=== PATIENT | female | born 1975 | race Caucasian/White ===

== ENCOUNTER 2016-12-28 21:58 | Observation (INO) | payer MEDICAID ==
[~2016-12-28] VITALS: Ht 144.8 cm; Wt 68.0 kg
[2016-12-28 21:59] VITALS: BP 141/80; PULSE 80; RESP 16; TEMP 98; O2SAT 98
[2016-12-28] MEDS ORDERED: SODIUM CHLOR 0.9% 1000 ML INJ 1,000 ML IV SCH (23:00)
[2016-12-28] MEDS ORDERED: HYDROmorphone HCL PF 1 MG/ML VIAL IV PUSH ONE (23:00)
[2016-12-28] MEDS ORDERED: SODIUM CHLORIDE 0.9% FLUSH 5 ML FLUSH IVF PRN (23:00)
[2016-12-28] MEDS ORDERED: ONDANSETRON HCL 4 MG/2 ML VIAL IV PUSH ONE (23:00)
[2016-12-28 23:26] LABS: BLOOD, URINE TRACE (NEG); GLUCOSE,URINE NEG (NEG); KETONE, URINE TRACE mg/dL (NEG); NITRITE,URINE NEG (NEG); PH, URINE 5.5 (5.0-8.5); SQUAMOUS EPITHELIAL CELL URINE <1 /hpf (0-5); URINE COLOR LIGHT-YELLOW (YELLW/STRAW)
[2016-12-28 23:26] LABS: AUTOMATED NEUTROPHIL # 7.1 TH/MM3 (1.8-7.7); BASOPHIL % 0.3 % (0.0-2.0); EOSINOPHIL # 0.1 TH/MM3 (0-0.4); EOSINOPHIL % 1.3 % (0.0-4.0); HEMATOCRIT 34.4 % (35.0-46.0); HEMO FLAGS DIFF FINAL; LYMPHOCYTE # 2.7 TH/MM3 (1.0-4.8); MEAN CORPUSCULAR HEMOGLOBIN 27.2 PG (27.0-34.0); MEAN CORPUSCULAR HGB CONC 34.5 % (32.0-36.0); MONO % 6.4 % (0.0-8.0); PLATELET COUNT 290 TH/MM3 (150-450); RED BLOOD COUNT 4.35 MIL/MM3 (4.00-5.30); RED CELL DISTRIBUTION WIDTH 13.4 % (11.6-17.2); WHITE BLOOD COUNT 10.6 TH/MM3 (4.0-11.0)
[2016-12-28 23:29] LABS: COMMENT (UR) CULT NOT INDICATED; CULTURE IF INDICATED CULT NOT INDICATED
[2016-12-28 23:40] VITALS: BP 111/55; PULSE 82; RESP 18; O2SAT 98
[2016-12-28 23:51] LABS: ALT (GPT) 40 U/L (10-53); ANION GAP 7 MEQ/L (5-15); AST (GOT) 31 U/L (15-37); BICARBONATE 24.3 MEQ/L (21.0-32.0); BLOOD UREA NITROGEN 15 MG/DL (7-18); CHLORIDE 108 MEQ/L (98-107); GLOMERULAR FILTRATION RATE 113 ML/MIN (>89); POTASSIUM 3.6 MEQ/L (3.5-5.1); SODIUM (NA) 139 MEQ/L (136-145)
[2016-12-28 23:53] LABS: ALKALINE PHOSPHATASE 98 U/L (45-117); TOTAL BILIRUBIN ADULT 0.6 MG/DL (0.2-1.0)
--- NOTE | 2016-12-29 00:20 | RADRPT ---
EXAM DATE/TIME: 12/28/2016 23:40 [place] COMPARISON: No previous studies available for comparison. INDICATIONS : Right upper quadrant pain. MEDICAL HISTORY : Renal calculi. SURGICAL HISTORY : Appendectomy. ENCOUNTER: Initial ACUITY: 1 day PAIN SCORE: 7/10 LOCATION: Right upper quadrant MEASUREMENTS: LIVER: 15.2 cm length COMMON DUCT: 7 mm RIGHT KIDNEY: 10.7 x 3.9 x 5.1 cm FINDINGS: LIVER: Normal echotexture without focal lesion or ductal dilatation. COMMON DUCT: No intraluminal mass or stone visualized. Mildly prominent in caliber up to 7 mm. GALLBLADDER: Cholelithiasis, mild wall thickening up to 5.2 mm. No pericholecystic fluid. Positive sonographic Mur phy's sign. PANCREAS: The visualized portions are within normal limits. RIGHT KIDNEY: No evidence of hydronephrosis, stone, or mass. CONCLUSION: 1. Abnormal gallbladder with gallstones, wall thickening and positive sonographic Dexter sign charact eristic of acute cholecystitis. Yannick Franco MD on December 29, 2016 at 0:17 Board Certified Radiologist. This report was verified electronically.
[2016-12-29 01:00] VITALS: BP 101/58; PULSE 68; RESP 18; O2SAT 99
--- NOTE | 2016-12-29 01:17 | PD ---
HPI Chief Complaint: Abdominal Pain Time Seen by Provider: 01:19 Travel History International Travel<30 days: No Contact w/Intl Traveler<30days: No Traveled to known affect area: No History of Present Illness HPI 41-year-old female presents to the emergency prior by private transportation for complaint of right upper quadrant pain. Patient's had associated nausea and intermittent vomiting related to pain. No hematemesis no coffee-ground emesis some intermittent bilious emesis. Patient is also had mild diarrhea. Patient states that for the past several months at least past 6 months she's had intermittent pain to the right upper quadrant. Patient was seen at [facility] and diagnosed with gallstones. Patient has been trying to decrease the amount of sugar in her diet but did not understand that she needed decrease fried and fatty foods from her diet. Patient rates pain 8/10 intensity. Patient denies any other chronic medical conditions. Declined stratus, family members at bedside to translate. PFSH Past Medical History Narrative Medical Gallstones, kidney stones, appendectomy, no tobacco use, nursing notes reviewed Diminished Hearing: No Kidney Stones: Yes Tetanus Vaccination: Unknown ?: Not LMP: 12/09/16 Past Surgical History Appendectomy: Yes Social History Alcohol Use: No Tobacco Use: No Substance Use: No Allergies-Medications (Allergen,Severity, Reaction): Coded Allergies: No Known Allergies (Unverified , 12/28/16) Reported Meds & Prescriptions Reported Meds & Active Scripts Active Percocet (Oxycodone-Acetaminophen) 5-325 mg Tab 1-2 Tab PO Q6H PRN Review of Systems Except as stated in HPI: all other systems reviewed are Neg General / Constitutional: No: Fever HENT: No: Congestion Cardiovascular: No: Chest Pain or Discomfort Respiratory: No: Shortness of Breath Gastrointestinal: Positive: Nausea, Vomiting, Abdominal Pain Genitourinary: No: Dysuria, Flank Pain Musculoskeletal: No: Myalgias, Arthralgias Skin: No Rash Neurologic: No: Weakness Psychiatric: No: Anxiety Hematologic/Lymphatic: No: Lymph Node Enlargement Physical Exam Narrative GENERAL: Well-developed well-nourished female in no acute distress no respiratory distress SKIN: Warm and dry. HEAD: Normocephalic. EYES: No scleral icterus. No injection or drainage. NECK: Supple, trachea midline. No JVD or lymphadenopathy. CARDIOVASCULAR: Regular rate and rhythm without murmurs, gallops, or rubs. RESPIRATORY: Breath sounds equal bilaterally. No accessory muscle use. GASTROINTESTINAL: Abdomen soft, non-tender, nondistended. MUSCULOSKELETAL: No cyanosis, or edema. BACK: Nontender without obvious deformity. No CVA tenderness. Data Data Last Documented VS Vital Signs Date Time Temp Pulse Resp B/P Pulse Ox O2 Delivery O2 Flow Rate FiO2 12/29/16 01:00 68 18 101/58 99 Room Air 12/28/16 21:59 98.0 Orders Complete Blood Count With Diff (12/28/16 22:52) Comprehensive Metabolic Panel (12/28/16 22:52) Lipase (12/28/16 22:52) Urinalysis - C+S If Indicated (12/28/16 22:52) Us Abdomen Gallbladder (12/28/16 ) Iv Access Insert/Monitor (12/28/16 22:52) Ecg Monitoring (12/28/16 22:52) Oximetry (12/28/16 22:52) Sodium Chloride 0.9% Flush (Ns Flush) (12/28/16 23:00) Hydromorphone Pf Inj (Dilaudid Pf Inj) (12/28/16 23:00) Ondansetron Inj (Zofran Inj) (12/28/16 23:00) Sodium Chlor 0.9% 1000 Ml Inj (Ns 1000 M (12/28/16 23:00) Admit Order (Ed Use Only) (12/29/16 ) ^ Saline Lock (12/29/16 01:18) Resp Oxygen Gigi C Titrat 1-4 L (12/29/16 ) ^ Notify Dr: Other (12/29/16 01:18) Sodium Chloride 0.9% Flush (Ns Flush) (12/29/16 09:00) Sodium Chloride 0.9% Flush (Ns Flush) (12/29/16 01:30) NPO (12/29/16 01:18) Diet Npo (12/29/16 Breakfast) Labs Laboratory Tests Test 12/28/16 12/28/16 23:05 23:08 White Blood Count 10.6 TH/MM3 Red Blood Count 4.35 MIL/MM3 Hemoglobin 11.8 GM/DL Hematocrit 34.4 % Mean Corpuscular Volume 79.0 FL Mean Corpuscular Hemoglobin 27.2 PG Mean Corpuscular Hemoglobin 34.5 % Concent Red Cell Distribution Width 13.4 % Platelet Count 290 TH/MM3 Mean Platelet Volume 9.0 FL Neutrophils (%) (Auto) 67.0 % Lymphocytes (%) (Auto) 25.0 % Monocytes (%) (Auto) 6.4 % Eosinophils (%) (Auto) 1.3 % Basophils (%) (Auto) 0.3 % Neutrophils # (Auto) 7.1 TH/MM3 Lymphocytes # (Auto) 2.7 TH/MM3 Monocytes # (Auto) 0.7 TH/MM3 Eosinophils # (Auto) 0.1 TH/MM3 Basophils # (Auto) 0.0 TH/MM3 CBC Comment DIFF FINAL Differential Comment Sodium Level 139 MEQ/L Potassium Level 3.6 MEQ/L Chloride Level 108 MEQ/L Carbon Dioxide Level 24.3 MEQ/L Anion Gap 7 MEQ/L Blood Urea Nitrogen 15 MG/DL Creatinine 0.59 MG/DL Estimat Glomerular Filtration 113 ML/MIN Rate Random Glucose 93 MG/DL Calcium Level 8.3 MG/DL Total Bilirubin 0.6 MG/DL Aspartate Amino Transf 31 U/L (AST/SGOT) Alanine Aminotransferase 40 U/L (ALT/SGPT) Alkaline Phosphatase 98 U/L Total Protein 7.9 GM/DL Albumin 3.8 GM/DL Lipase 80 U/L Urine Color LIGHT-YELLOW Urine Turbidity CLEAR Urine pH 5.5 Urine Specific [place] 1.010 Urine Protein NEG mg/dL Urine Glucose (UA) NEG mg/dL Urine Ketones TRACE mg/dL Urine Occult Blood TRACE Urine Nitrite NEG Urine Bilirubin NEG Urine Urobilinogen LESS THAN 2.0 MG/DL Urine Leukocyte Esterase NEG Urine RBC 1 /hpf Urine WBC LESS THAN 1 /hpf Urine Squamous Epithelial <1 /hpf Cells Microscopic Urinalysis Comment CULT NOT INDICATED MDM Medical Decision Making Medical Screen Exam Complete: Yes Emergency Medical Condition: Yes Medical Record Reviewed: Yes Interpretation(s) Vital Signs Date Time Temp Pulse Resp B/P Pulse Ox O2 Delivery O2 Flow Rate FiO2 12/28/16 23:40 82 18 111/55 98 Room Air 12/28/16 21:59 98.0 80 16 141/80 98 Last Impressions Gall Bladder Ultrasound 12/28/16 0000 Signed Impressions: Service Date/Time: Wednesday, December 28, 2016 23:40 - CONCLUSION: 1. Abnormal gallbladder with gallstones, wall thickening and positive sonographic Dexter sign characteristic of acute cholecystitis. Yannick Franco MD CBC & BMP Diagram 12/28/16 23:05 Differential Diagnosis Biliary colic, acute cholecystitis, choledocholithiasis, pancreatitis, gastritis , peptic ulcer disease, atypical renal colic Narrative Course IV access obtained specimens collected and sent for resulting imaging studies ordered Patient administered Zofran and Dilaudid as well as maintenance IV fluids @1:20 AM ultrasound resulted and patient identified to have changes consistent with acute cholecystitis Patient and family informed of imaging results and need for admission case discussed with on-call surgeon Patient and family aware of imaging and lab results --staff also available along with family to translate; patient's questions were answered to her satisfaction. Physician Communication Physician Communication discussed with Dr Mancuso---admit to his service npo Diagnosis Primary Impression: Acute cholecystitis Admitting Information Admitting Physician Requests: Observation Scripts Oxycodone-Acetaminophen (Percocet)5-325 mg Tab1-2 Tab PO Q6H PRN (PAIN) #30 TAB Ref 0 Prov:Michael Mancuso MD 12/29/16 Rose Mary Becker MD Dec 29, 2016 01:17
[2016-12-29] MEDS ORDERED: D5-1/2 NS + KCL 20 MEQ INJ 1,000 ML IV SCH (01:18)
[2016-12-29] MEDS ORDERED: MORPHINE SULFATE 4 MG/ML INJ IV PUSH PRN ×2 (01:30)
[2016-12-29] MEDS ORDERED: SODIUM CHLORIDE 0.9% FLUSH 5 ML FLUSH IV PRN (01:30)
[2016-12-29] MEDS ORDERED: SODIUM CHLORIDE 0.9% FLUSH 5 ML FLUSH IVF PRN (01:30)
[2016-12-29] MEDS ORDERED: ONDANSETRON HCL 4 MG/2 ML VIAL IV PRN (01:30)
[2016-12-29] MEDS: PIPERACIL-TAZO 3.375 GM PREMIX 50 ML IV SCH ×2 (02:22→08:00)
[2016-12-29 02:41] VITALS: BP 130/71
[2016-12-29 03:36] VITALS: BP 98/55; PULSE 64; RESP 18; TEMP 98.8; O2SAT 98
[2016-12-29 07:29] VITALS: BP 121/65; PULSE 65; RESP 16; TEMP 98; O2SAT 100
[2016-12-29] MEDS ORDERED: SODIUM CHLORIDE 0.9% FLUSH 5 ML FLUSH IV SCH (09:00)
[2016-12-29] MEDS ORDERED: SODIUM CHLORIDE 0.9% FLUSH 5 ML FLUSH IVF SCH (09:00)
--- NOTE | 2016-12-29 09:59 | HHI.HP ---
HPI Service General Surgery Primary Care Physician No Primary Care Physician Admission Diagnosis acute cholecystitis Chief Complaint: abdominal pain History of Present Illness This is a 41-year-old female who presents with right upper quadrant pain. She has had right upper quadrant pain intermittently for about 3 years. However, this has become more frequent and more severe recently. She has had some nausea and associated vomiting. She had been told she had gallstones at [facility]. Evaluation in the emergency department here showed gall wall thickening and stones on ultrasound. Review of Systems Constitutional: DENIES: Fever, Chills Eyes: DENIES: Eye inflammation, Eye pain Cardiovascular: DENIES: Chest pain, Palpitations Gastrointestinal: COMPLAINS OF: Abdominal pain, Nausea Integumentary: DENIES: Pruritus, Rash Neurologic: DENIES: Abnormal gait, Headache Past Family Social History Past Medical History Kidney stones Appendicitis Past Surgical History Laparoscopic appendectomy Reported Medications Reported Meds & Active Scripts Active No Active Prescriptions or Reported Medications Allergies: Coded Allergies: No Known Allergies (Unverified , 12/28/16) Active Ordered Medications Current Medications Medications (Trade) Dose Ordered Sig/Joe Route Start Time Stop Time Status Last Admin IV Flush 2 ml 2 ml UNSCH PRN IV 12/29/16 01:30 (Zosyn 3.375 Gm Premix) 50 ml @ 100 mls/hr Q6H IV 12/29/16 02:00 12/29/16 02:22 Ondansetron HCl 4 mg 4 mg Q6H PRN IV 12/29/16 01:30 (D5-1/2 NS + KCl 20 Meq Inj) 1,000 ml @ 100 mls/hr Q10H IV 12/29/16 01:18 12/29/16 02:46 (Morphine Inj) 2 mg Q3H PRN IV PUSH 12/29/16 01:30 (Morphine Inj) 4 mg Q3H PRN IV PUSH 12/29/16 01:30 Family History Noncontributory Social History No alcohol tobacco or drug use. Physical Exam Vital Signs Vital Signs Date Time Temp Pulse Resp B/P Pulse Ox O2 Delivery O2 Flow Rate FiO2 12/29/16 07:29 98.0 65 16 121/65 100 12/29/16 03:36 98.8 64 18 98/55 98 12/29/16 02:41 67 18 130/71 98 12/29/16 01:00 68 18 101/58 99 Room Air 12/28/16 23:40 82 18 111/55 98 Room Air 12/28/16 21:59 98.0 80 16 141/80 98 Physical Exam GENERAL: Awake and alert. No acute distress. Cooperative. HEAD: Normocephalic. Atraumatic. EYES: Pupils equal round and reactive to light bilaterally. No scleral icterus. CHEST: Lungs clear to auscultation bilaterally with no wheezing or rhonchi. No respiratory distress. CARDIOVASCULAR: Regular rate and rhythm. ABDOMEN: Positive Dexter sign. Well-healed port site incisions. Moderate tenderness in the right upper quadrant. EXTREMITIES: No cyanosis or edema. SKIN: Warm, dry, nonjaundiced. Laboratory Laboratory Tests Test 12/28/16 12/28/16 23:05 23:08 White Blood Count 10.6 Red Blood Count 4.35 Hemoglobin 11.8 Hematocrit 34.4 Mean Corpuscular Volume 79.0 Mean Corpuscular Hemoglobin 27.2 Mean Corpuscular Hemoglobin 34.5 Concent Red Cell Distribution Width 13.4 Platelet Count 290 Mean Platelet Volume 9.0 Neutrophils (%) (Auto) 67.0 Lymphocytes (%) (Auto) 25.0 Monocytes (%) (Auto) 6.4 Eosinophils (%) (Auto) 1.3 Basophils (%) (Auto) 0.3 Neutrophils # (Auto) 7.1 Lymphocytes # (Auto) 2.7 Monocytes # (Auto) 0.7 Eosinophils # (Auto) 0.1 Basophils # (Auto) 0.0 CBC Comment DIFF FINAL Differential Comment Sodium Level 139 Potassium Level 3.6 Chloride Level 108 Carbon Dioxide Level 24.3 Anion Gap 7 Blood Urea Nitrogen 15 Creatinine 0.59 Estimat Glomerular Filtration 113 Rate Random Glucose 93 Calcium Level 8.3 Total Bilirubin 0.6 Aspartate Amino Transf 31 (AST/SGOT) Alanine Aminotransferase 40 (ALT/SGPT) Alkaline Phosphatase 98 Total Protein 7.9 Albumin 3.8 Lipase 80 Urine Color LIGHT-YELLOW Urine Turbidity CLEAR Urine pH 5.5 Urine Specific [place] 1.010 Urine Protein NEG Urine Glucose (UA) NEG Urine Ketones TRACE Urine Occult Blood TRACE Urine Nitrite NEG Urine Bilirubin NEG Urine Urobilinogen LESS THAN 2.0 Urine Leukocyte Esterase NEG Urine RBC 1 Urine WBC LESS THAN 1 Urine Squamous Epithelial <1 Cells Microscopic Urinalysis Comment CULT NOT INDICATED Result Diagram: 12/28/16230412/28/162304 Imaging Last Impressions Gall Bladder Ultrasound 12/28/16 0000 Signed Impressions: Service Date/Time: Wednesday, December 28, 2016 23:40 - CONCLUSION: 1. Abnormal gallbladder with gallstones, wall thickening and positive sonographic Dexter sign characteristic of acute cholecystitis. Yannick Franco MD Assessment and Plan Assessment and Plan 41-year-old female with acute calculus cholecystitis. I'll plan to perform laparoscopic cholecystectomy, possible open today. I discussed the procedure in detail with the patient including risks and benefits she desires to proceed. She will likely be able to go home today. Michael Mancuso MD Dec 29, 2016 09:59
[2016-12-29] MEDS ORDERED: BUPIVACAINE/EPINEPHRINE 0.25% PF 30 ML VIAL ONE (10:37)
[2016-12-29] MEDS ORDERED: DEXAMETHASONE SOD PHOS 4 MG/ML VIAL ONE (10:50)
[2016-12-29] MEDS ORDERED: ACETAMINOPHEN 1000 MG/100 ML VIAL IV ONE (10:50)
[2016-12-29] MEDS ORDERED: MIDAZOLAM HCL 2 MG/2 ML VIAL ONE (10:50)
[2016-12-29] MEDS ORDERED: fentaNYL CITRATE 250 MCG/5 ML AMP ONE (10:50)
[2016-12-29] MEDS ORDERED: FAMOTIDINE 20 MG/2 ML VIAL ONE (10:50)
[2016-12-29] MEDS ORDERED: PROPOFOL 200 MG/20 ML AMP IV ONE (11:44)
[2016-12-29] MEDS ORDERED: ONDANSETRON HCL 4 MG/2 ML VIAL IV PUSH ONE (11:44)
[2016-12-29] MEDS ORDERED: NEOSTIGMINE 3 MG/3 ML SYR IV ONE (11:44)
[2016-12-29] MEDS ORDERED: NORMOSOL R INJ 1,000 ML IV ONE (11:45)
[2016-12-29 11:49] LABS: BETA HCG QUANT LESS THAN 1 MIU/ML (0-5)
[2016-12-29] MEDS ORDERED: PERC5TAB12 PO (12:43)
[2016-12-29] MEDS ORDERED: oxyCODONE/ACETAMINOPHEN 5 MG/325 MG TAB PO PRN ×2 (12:45)
--- NOTE | 2016-12-29 12:48 | PD.OP ---
cc: Michael Mancuso MD Operative Report Date of Surgery: Dec 29, 2016 Preoperative Diagnosis: (1) Acute cholecystitis Postoperative Diagnosis: (1) Acute cholecystitis Procedure: Laparoscopic cholecystectomy Anesthesia: GETA Surgeon: Michael Mancuso Leaf Coverer(s): Geraldine REY Operation and Findings: Complications: None apparent EBL: 20 cc Operative findings: The patient had omental adhesions to the gallbladder. The gallbladder wall appeared chronically thickened. There were multiple small stones and sludge and at least one very large stone. Procedure in detail: The patient was taken to the operating room and placed in the supine position. General endotracheal anesthesia was induced. The abdomen was prepped and draped in usual sterile fashion and a surgical timeout was performed to verify correct patient procedure and site. Appropriate perioperative antibiotics were administered. Local anesthetic was injected in the skin and subcutaneous tissue superior to the umbilicus and a 5 mm incision performed. The abdomen was entered using the Optiview 5 mm trocar with direct laparoscopic visualization. The abdomen was then insufflated to 15 mmHg with CO2 gas which the patient tolerated well. Next a 12 mm port was placed in the epigastrium and two 5 mm ports in the right upper quadrant and right lateral abdomen. The patient was placed in reverse Trendelenburg position and turned slightly to the left. Attention was turned to the right upper quadrant. Omental adhesions to the gallbladder were taken down carefully with electrocautery and the dome of the gallbladder was grasped and retracted cephalad. The infundibulum was retracted laterally to expose Calot's triangle. Blunt dissection and judicious use of electrocautery was used to expose the cystic duct and the cystic artery directly entering the gallbladder. Two clips were placed proximally on each of these structures and one distally and they were transected. The gallbladder was then removed from the liver bed using electrocautery . The gallbladder was inadvertently entered and small stones and sludge spilled and were quickly suctioned from the abdomen. There was some bleeding from the liver bed and the suction industrial maintenance electrician and cautery were used to control the bleeding. Hemostasis was achieved. The gallbladder was then removed from the abdomen using an Endo Catch bag after extending the fascial and skin incisions at the 12 mm port site due to the large gallstone. The clips were in place on the cystic duct and cystic artery stumps with no bleeding or bile leakage. The right upper quadrant was copiously irrigated and suctioned. At this point, the abdomen was allowed to desufflate and trochars were removed. The fascia at the 12 mm port site was closed with 0 Vicryl suture. Skin was closed with subcuticular 4-0 Monocryl as well as Dermabond. The patient tolerated the procedure well and was extubated and taken to PACU in stable condition. All sponge and instrument counts were correct. Michael Mancuso MD Dec 29, 2016 12:48
[2016-12-29] MEDS ORDERED: MORPHINE SULFATE 4 MG/ML INJ ONE (12:51)
[2016-12-29] MEDS ORDERED: *morphine SULFATE 8 MG/ML PERIprocedure ONLY ONE ×3 (12:54→13:16)
[2016-12-29 15:54] VITALS: BP 122/69; PULSE 77; RESP 17; TEMP 98.1; O2SAT 98
[2016-12-29 19:48] VITALS: BP 108/62; PULSE 62; RESP 20; TEMP 97.4; O2SAT 99
[2016-12-30 01:01] VITALS: BP 114/65; PULSE 75; RESP 20; TEMP 97.4; O2SAT 98
[2016-12-30 04:45] VITALS: BP 104/57; PULSE 71; RESP 20; TEMP 97.6; O2SAT 98
[2016-12-30 07:24] VITALS: O2SAT 95
[2016-12-30 08:32] VITALS: BP 105/74; PULSE 67; RESP 18; TEMP 98.4; O2SAT 96
[2016-12-30 12:08] VITALS: BP 117/79; PULSE 82; RESP 20; TEMP 98.2; O2SAT 99
--- NOTE | 2016-12-30 12:57 | HHI.DS ---
Discharge Summary Admission Date Dec 29, 2016 at 01:20 Discharge Date: Dec 30, 2016 Admitting Diagnosis acute cholecystitis Procedures Laparoscopic cholecystectomy Brief History This is a 41-year-old female who presents with right upper quadrant pain. She has had right upper quadrant pain intermittently for about 3 years. However, this has become more frequent and more severe recently. She has had some nausea and associated vomiting. She had been told she had gallstones at [facility]. Evaluation in the emergency department here showed gall wall thickening and stones on ultrasound. CBC/BMP: 12/28/16 2305 12/28/16 2305 Significant Findings Laboratory Tests Test 12/28/16 12/28/16 23:05 23:08 Hematocrit 34.4 % (35.0-46.0) Mean Corpuscular Volume 79.0 FL (80.0-100.0) Chloride Level 108 MEQ/L (98-107) Calcium Level 8.3 MG/DL (8.5-10.1) Urine Ketones TRACE mg/dL (NEG) Urine Occult Blood TRACE (NEG) PE at Discharge Awake, alert, NAD Abd: inc c/d/i, moderate epigastric and RUQ ttp Hospital Course The patient underwent uncomplicated cholecystectomy. She had nausea post op and required overnight stay. She is feeling better now. She has pain but it is moderate and she has not been taking pain medication. She can go home. Pt Condition on Discharge: Good Discharge Disposition: Discharge Home Discharge Instructions DIET: Follow Instructions for: Low Fat Diet Activities you can perform: See Additionl Instruction Other Activity Instructions: Ok to shower. NO driving while on narcotic pain meds. No heavy lifting. Follow up Referrals: Surgical - 2 Weeks with Michael Mancuso MD New Medications: Oxycodone-Acetaminophen (Percocet) 5-325 mg Tab 1-2 TAB PO Q6H PRN PAIN #30 Ref 0 TAB Michael Mancuso MD Dec 30, 2016 12:56
== END 2016-12-30 15:13 | disposition home or self-care (01) ==
LOC: NEPC 21:58 → NEDA 12-29 01:20 → NEPGCP 12-29 03:10
PROVIDERS: ADMIT Surgery; ATTEND Surgery
DX: K80.00 Calculus of gallbladder with acute cholecystitis without obstruction (principal); K66.0 Peritoneal adhesions (postprocedural) (postinfection); Z87.442 Personal history of urinary calculi
CPT/HCPCS: 00790; 47562; 76705; 80053; 81001; 83690; 84702; 85025; 88304; 96361; 96374; 96375; 99285; G0378; J0131; J1100; J1170; J2250; J2270; J2405; J2543; J2710; J3010; J3480; J7030